=== PATIENT | female | born 1995 | race Caucasian/White ===

== ENCOUNTER → 2018-04-07 | Outpatient (CLI) | payer BC ==
--- NOTE | 2018-04-07 13:40 | KCIC ---
EXAM: Abdomen sonogram. HISTORY: Right upper quadrant and epigastric pain. TECHNIQUE: Sonographic imaging of the abdomen was performed. COMPARISON: None. FINDINGS: The liver is normal in size. No focal hepatic lesion is seen. The gallbladder is unremarkable. The common bile duct is normal in caliber. The right kidney is normal in size. There is no hydronephrosis. The pancreas is obscured due to bowel gas. The inferior vena cava is patent. The aorta is not assessed. IMPRESSION: 1. Obscured pancreas due to bowel gas. 2. Otherwise, unremarkable abdomen sonogram. Electronically signed by: Norma Blake MD (04/07/2018 1:36 PM) [id number]
== END | disposition home or self-care (01) ==
LOC: KCIC US 12:04
PROVIDERS: ATTEND Physician Assistant Medical
DX: R10.11 Right upper quadrant pain (principal); R10.13 Epigastric pain
CPT/HCPCS: 76705

== ENCOUNTER → 2020-10-17 | Outpatient (CLI) | payer BC ==
--- NOTE | 2020-10-17 10:10 | RAD ---
EXAM: Soft tissue ultrasound, left axilla. HISTORY: Palpable focus left axilla. COMPARISON: None. FINDINGS: Sonography of the left axilla was performed. At the site of palpable concern, a lymph node measures 15 x 13 x 7 mm. It has a fatty hilus and corti ro thickness up to 2.8 mm. This is most likely benign. No enlarged clearly pathologic nodes are seen . IMPRESSION: 1. The palpable focus corresponds with a likely benign lymph node. Correlate for regional inflammatio n. Ongoing follow-up of palpable foci is recommended. Sonographic follow-up could demonstrate stabili ty in 3 months if there is persistent concern. Electronically signed by: Jeffrey Benoit MD (10/17/2020 10:08 AM) [id number]
== END ==
LOC: US 06:44
PROVIDERS: ATTEND Family Medicine
DX: R59.0 Localized enlarged lymph nodes (principal)
CPT/HCPCS: 76881